=== PATIENT | female | born 1995 | race Two or more races ===

== ENCOUNTER 2020-03-09 16:54 | Outpatient (CLI) | payer OTHER ==
--- NOTE | 2020-03-09 18:01 | Non Stress Test Report ---
Non Stress Test Datetime Report Generated by CPN: 03/09/2020 18:01 DEMOGRAPHIC Test Number: 1 EGA NST: 35.5 INDICATION Indication for Study (NST) Other: Repeat NST VITAL SIGNS Temperature - NST: 98.3 Pulse - NST: 84 RESP - NST: 20 NBPSYS NST: 105 NBPDIA NST: 66 MONITORING Monitor Explained: Monitor Explained; Test Explained; Patient Verbalized Understanding Time on Monitor: 03/09/2020 17:07 Time off Monitor: 03/09/2020 17:43 NST Duration: 36 NST INTERVENTIONS NST Interventions: PO Hydration; Reposition Patient Physician Notified NST: Coffman MD BABY A: [id number] BABY A Movement : Present Contraction Frequency : Irregular FHR Baseline : 130 Accelerations : 15X15 Decelerations : None Variability : Moderate 6-25bpm NST Review: Meets Criteria for Reactive NST NST Review and Verified By : Tawanna RN NST Results: Reactive NST REPORT Report Trigger: Send Report
== END 2020-03-09 17:53 | disposition home or self-care (01) ==
LOC: LC 16:54
PROVIDERS: ATTEND Obstetrics & Gynecology Gynecology
DX: O9A.213 Injury, poisoning and certain other consequences of external causes complicating pregnancy, third trimester (principal); R10.9 Unspecified abdominal pain; Z3A.35 35 weeks gestation of pregnancy; W19.XXXA Unspecified fall, initial encounter; Y92.481 Parking lot as the place of occurrence of the external cause

== ENCOUNTER 2020-03-09 20:13 | Outpatient (CLI) | payer OTHER ==
--- NOTE | 2020-03-09 21:00 | Non Stress Test Report ---
Non Stress Test Datetime Report Generated by CPN: 03/09/2020 20:59 DEMOGRAPHIC EGA NST: 35.5 INDICATION Indication for Study (NST) Other: LC- fall on back VITAL SIGNS Temperature - NST: 98.3 Pulse - NST: 84 RESP - NST: 20 NBPSYS NST: 105 NBPDIA NST: 66 MONITORING Monitor Explained: Monitor Explained; Test Explained; Patient Verbalized Understanding Time on Monitor: 03/09/2020 20:25 Time off Monitor: 03/09/2020 20:54 NST Duration: 29 NST INTERVENTIONS NST Interventions: Reposition Patient Physician Notified NST: Dr. Coffman BABY A Movement : Present Contraction Frequency : none FHR Baseline : 130 Accelerations : 15X15 Decelerations : None Variability : Moderate 6-25bpm NST Review: Meets Criteria for Reactive NST NST Review and Verified By : Katiuska Palafox RN NST Results: Reactive NST REPORT Report Trigger: Send Report
== END 2020-03-09 20:57 | disposition home or self-care (01) ==
LOC: LC 20:13
PROVIDERS: ATTEND Obstetrics & Gynecology Gynecology
DX: O47.03 False labor before 37 completed weeks of gestation, third trimester (principal); Z3A.35 35 weeks gestation of pregnancy; Z91.81 History of falling
CPT/HCPCS: 59025

== ENCOUNTER 2020-04-07 11:51 | Outpatient (CLI) | payer OTHER ==
[2020-04-07 12:37] LABS: ABSOLUTE EOSINOPHILS # (AUTO) 0.1 10^3/uL (0.0-0.6); ABSOLUTE LYMPHOCYTES (AUTO) 1.6 10^3/uL (0.5-4.7); ABSOLUTE MONOCYTES (AUTO) 0.6 10^3/uL (0.1-1.4); ABSOLUTE NEUT (AUTO) 5.9 10^3/uL (1.7-8.2); BASOPHILS % (AUTO) 0.6 % (0-2); HEMATOCRIT 32.6 % (36.0-47.0); HEMOGLOBIN 10.8 g/dL (12.0-15.5); LYMPHOCYTES % (AUTO) 19.7 % (13-45); MEAN CORPUSCULAR HEMOGLOBIN 28.2 pg (27.0-33.4); MEAN CORPUSCULAR HGB CONC 33.1 g/dL (32.0-36.0); MEAN CORPUSCULAR VOLUME 85 fl (80-97); MONOCYTES % (AUTO) 7.1 % (3-13); PLATELET COUNT 200 10^3/uL (150-450); RED BLOOD COUNT 3.83 10^6/uL (3.72-5.28); RED CELL DISTRIBUTION WIDTH 16.2 % (11.5-14.0); SEGMENTED NEUTROPHILS % (AUTO) 71.6 % (42-78); TOTAL CELLS COUNTED % (AUTO) 100 %; WHITE BLOOD COUNT 8.2 10^3/uL (4.0-10.5)
[2020-04-07 12:49] LABS: APPEARANCE,URINE SLIGHTLY-CLOUDY; BILIRUBIN,URINE NEGATIVE (NEGATIVE); COLOR,URINE YELLOW; GLUCOSE, URINE NEGATIVE (NEGATIVE); KETONES,URINE NEGATIVE (NEGATIVE); LEUKOCYTE ESTERASE,URINE TRACE (NEGATIVE); NITRITE,URINE NEGATIVE (NEGATIVE); PROTEIN,URINE 30 mg/dL (NEGATIVE); URINE SPECIFIC GRAVITY 1.024; UROBILINOGEN,URINE NEGATIVE mg/dL (<2.0)
[2020-04-07 12:56] LABS: ALBUMIN 3.2 g/dL (3.5-5.0); ALKALINE PHOSPHATASE 118 U/L (38-126); ASPARTATE AMINO TRANSFERASE 29 U/L (14-36); BILIRUBIN,TOTAL 0.3 mg/dL (0.2-1.3); BLOOD UREA NITROGEN 14 mg/dL (7-20); CALCIUM 9.2 mg/dL (8.4-10.2); CARBON DIOXIDE 21 mmol/L (22-30); CHLORIDE 108 mmol/L (98-107); GLUCOSE 93 mg/dL (75-110); POTASSIUM 4.2 mmol/L (3.6-5.0); TOTAL PROTEIN 5.8 g/dL (6.3-8.2)
[2020-04-07 12:59] LABS: ANION GAP 5 (5-19)
[2020-04-07 13:31] LABS: URINE AMPHETAMINES SCREEN NEGATIVE; URINE BARBITURATES SCREEN NEGATIVE; URINE BENZODIAZEPINES SCREEN NEGATIVE; URINE COCAINE SCREEN NEGATIVE; URINE MARIJUANA (THC) SCREEN NEGATIVE; URINE METHADONE SCREEN NEGATIVE; URINE PHENCYCLIDINE SCREEN NEGATIVE
[2020-04-07 13:41] LABS: UR PRO/CREAT RATIO RESULT 0.1 mg/mg (0.0-0.2); URINE CREATININE 150.7 mg/dL (16-327); URINE PROTEIN 11.2 mg/dL (<12)
--- NOTE | 2020-04-07 14:24 | Non Stress Test Report ---
Non Stress Test Datetime Report Generated by CPN: 04/07/2020 14:23 DEMOGRAPHIC EGA NST: 39.6 INDICATION Indication for Study (NST) Other: High blood pressure VITAL SIGNS Temperature - NST: 97.3 Pulse - NST: 82 RESP - NST: 20 NBPSYS NST: 136 NBPDIA NST: 82 MONITORING Monitor Explained: Monitor Explained; Test Explained Time on Monitor: 04/07/2020 13:30 Time off Monitor: 04/07/2020 13:59 NST Duration: 29 NST INTERVENTIONS NST Interventions: PO Hydration; Reposition Patient Physician Notified NST: Dr. Amato BABY A: [id number] BABY A Movement : Present Contraction Frequency : 0 FHR Baseline : 135 Accelerations : 15X15 Decelerations : None Variability : Moderate 6-25bpm NST Review: Questionable if Meets Criteria for Reactive NST NST Review and Verified By : MAGDA Alex Results: Reactive NST REPORT Report Trigger: Send Report
== END 2020-04-07 14:25 | disposition home or self-care (01) ==
LOC: LC 11:51
PROVIDERS: ATTEND Student in an Organized Health Care Education/Training Program
DX: O13.3 Gestational [pregnancy-induced] hypertension without significant proteinuria, third trimester (principal); Z3A.39 39 weeks gestation of pregnancy
CPT/HCPCS: 36415; 59025; 80053; 80307; 81001; 82570; 83615; 84156; 84550; 85025

== ENCOUNTER 2020-04-08 06:06 | Inpatient (IN) | payer OTHER ==
[2020-04-08] MEDS ORDERED: PENICILLIN G-K 5 MILLION UNIT VIAL ONE (07:23)
[2020-04-08] MEDS ORDERED: RINGERS SOLUTION,LACTATED 1,000 ML IV ONE (07:24)
[2020-04-08] MEDS ORDERED: PENICILLIN G POTASSIUM 5,000,000 UNIT in DEXTROSE 5%-WATER 100 ML IV ONE (07:24)
[2020-04-08] MEDS: RINGERS SOLUTION,LACTATED 1,000 ML IV PRN ×3 (07:32→14:58)
[2020-04-08] MEDS ORDERED: OXYTOCIN 10 UNIT/ML VIAL ONE (07:43)
[2020-04-08] MEDS ORDERED: MISOPROSTOL 0.2 MG TABLET ONE (07:43)
[2020-04-08] MEDS ORDERED: OXYTOCIN/0.9 % SODIUM CHLORIDE 30 UNIT/500 ML RTUINJ ONE (07:43)
[2020-04-08] MEDS ORDERED: LIDOCAINE 1% INJ-PF (10 MG/ML) 30 ML SDV ONE (07:43)
[2020-04-08] MEDS: OXYTOCIN/0.9 % SODIUM CHLORIDE 30 UNIT/500 ML RTUINJ IV PRN (08:00)
[2020-04-08 08:18] LABS: MEAN CORPUSCULAR HEMOGLOBIN 28.3 pg (27.0-33.4); MEAN CORPUSCULAR HGB CONC 33.2 g/dL (32.0-36.0); MEAN CORPUSCULAR VOLUME 85 fl (80-97); PLATELET COUNT 193 10^3/uL (150-450); RED BLOOD COUNT 3.88 10^6/uL (3.72-5.28); RED CELL DISTRIBUTION WIDTH 16.1 % (11.5-14.0); WHITE BLOOD COUNT 7.4 10^3/uL (4.0-10.5)
--- NOTE | 2020-04-08 08:33 | Admission Physical ---
Datetime Report Generated by CPN: 04/08/2020 08:33 CURRENT ADMISSION Hx Assessment: The History has been Reviewed and is Current Chief Complaint: Suspected Ruptured Membranes Chief Complaint Other: Rupture of membranes Admit Impression : Term, Intrauterine ; Ruptured Membranes Admit Plan: Admit to Unit; Initiate Labor Protocol; Initiate Labor Augmentation Protocol ALLERGIES Medication Allergies: No Medication Allergies: No Known Allergies (04/08/2020) Latex: No Latex Allergies Food Allergies: denies Environmental Allergies: denies OBSTETRICAL HISTORY EDC: 04/08/2020 00:00 : 1 Para: 0 Term: 0 : 0 SAB: 0 IAB: 0 Ectopic: 0 Livin Cesareans: 0 VBACs: 0 Multiple Births: 0 Gestational Diabetes: No Rh Sensitization: No Incompetent Cervix: No JUAN RAMON: No Infertility: No ART Treatment: No Uterine Anomaly: No IUGR: No Hx Previous C/S: No Macrosomia: No Hx Loss/Stillborn: No PIH: Yes Hx : No Placenta Previa/Abruption: No Depression/PP Depression: No PTL/PROM: No Post Hemorrhage: No Current Procedures: Ultrasound; NST Obstetrical History Comments: g1-current , currently being evaluated for PIH/Pre-e SEE RECORDS Alcohol: No Marijuana : No Cocaine: No Other Illicit Drugs: No Cigarettes: Never Smoker. [id number] MEDICAL HISTORY Diabetes: No Blood Transfusion: No Pulmonary Disease (Asthma, TB): No Breast Disease: No Hypertension: Unknown Field Handyman Surgery: No Heart Disease: No Hosp/Surgery: No Autoimmune Disorder: No Anesthetic Complications: No Kidney Disease: No Abnormal Pap Smear: No Neuro/Epilepsy: No Psychiatric Disorders: No Other Medical Diseases: No Hepatitis/Liver Disease: No Significant Family History: No Varicosities/Phlebitis: No Trauma/Violence : No Thyroid Dysfunction: No Medical History Comments: born in [place] had tb vaccine so PPD is always positive INFECTIOUS HISTORY Gonorrhea: No Genital Herpes: No Chlamydia: No Tuberculosis: No Syphilis: No Hepatitis: No HIV/AIDS Exposure: No Rash or Viral Illness: No HPV: No Infectious History Comments: born in [place] had tb vaccine so PPD is always positive PHYSICAL EXAM General: Normal HEENT: Normal Neurologic: Normal Thyroid: Normal Heart: Normal Lungs: Normal Breast: Normal Back: Normal Abdomen: Normal Genitourinary Exam: Normal Extremities: Normal DTRs: Normal Pelvic Type: Adequate Vital Signs: Reviewed; Within Normal Limits VAGINAL EXAM Dilatation: 2 Effacement: 60 Station: -2 Contraction Comments: Irregular MEMBRANES Pooling: Positive Membranes: Ruptured Amniotic Fluid Color: Meconium, Light FETUS A EGA: 40.0 Monitoring: External US FHR- Baseline: 135 Variability: Moderate 6-25bpm Accelerations: 15X15 Decelerations: None FHR Category: Category I Presentation: Vertex Admit Comment: 25 G1 at 40.0 weeks EGA in active labor after SROM at 0525 this AM. -Admit to LDR -NPO and IVFs. LR at 125 cc/hr after 1 liter bolus -CEFM and toco -GBS positive. PCN prophylaxis -Irregular ctx: Pitocin low dose protocol. -Elevated b/p's : PIH labs and 24 hr urine pending No severes presently. Plan Mag sulfate if severes develop -Anticipate PLANS FOR LABOR AND DELIVERY Labor and Delivery: None Pain Management: Natural Feeding Preference: Breast Benefit of Breast Feed Discussed: Yes Circumcision: N/A INFORMED CONSENT Informed Consent Obtained: Vaginal Delivery; Section Delivery; Risks, Benefits and Alternatives Discussed Signature: with User ID: Saray : with User ID: Saray
[2020-04-08] MEDS: PENICILLIN G POTASSIUM 2,500,000 UNIT in DEXTROSE 5%-WATER 50 ML IV SCH ×3 (11:34→20:14)
[2020-04-08] MEDS ORDERED: PROMETHAZINE HCL INJ 25 MG/1 ML VIAL ONE (11:49)
[2020-04-08] MEDS ORDERED: NALBUPHINE HCL INJ 10 MG/1 ML AMPULE ONE (11:49)
[2020-04-08] MEDS ORDERED: NALBUPHINE HCL INJ 10 MG/1 ML AMPULE INJ ONE (11:50)
[2020-04-08] MEDS ORDERED: PROMETHAZINE HCL INJ 25 MG/1 ML VIAL IV PRN (11:50)
[2020-04-08] MEDS ORDERED: LABETALOL HCL INJ 20 MG/4 ML DISP.SYRIN IV ONE ×2 (12:29→12:42)
[2020-04-08] MEDS ORDERED: FENTANYL/BUPIVACAINE/NS/PF 300 MCG/150 ML RTUINJ EPI ONE (14:10)
[2020-04-08] MEDS ORDERED: ROPIVACAINE HCL 0.2% INJ/PF (2 MG/ML) 20 ML SDV ONE (14:10)
[2020-04-08] MEDS ORDERED: EPHEDRINE SULFATE INJ 50 MG/1 ML AMPULE ONE (14:10)
[2020-04-08 15:36] LABS: 24 HOUR URINE PROTEIN RESULT 740 mg/day (42-225); URINE PROTEIN 18.4 mg/dL (<12)
[2020-04-09] MEDS: PENICILLIN G POTASSIUM 2,500,000 UNIT in DEXTROSE 5%-WATER 50 ML IV SCH ×2 (00:12→05:28)
[2020-04-09] MEDS ORDERED: CALCIUM CARBONATE 500 MG TAB.CHEW PO ONE (01:04)
[2020-04-09] MEDS ORDERED: DEXTROSE 5%-WATER 250 ML IV PRN (01:04)
[2020-04-09] MEDS ORDERED: OXYTOCIN/0.9 % SODIUM CHLORIDE 30 UNIT/500 ML RTUINJ ONE (01:43)
[2020-04-09] MEDS: OXYTOCIN/0.9 % SODIUM CHLORIDE 30 UNIT/500 ML RTUINJ IV PRN (01:46)
[2020-04-09] MEDS ORDERED: LABETALOL HCL INJ 20 MG/4 ML DISP.SYRIN IV PRN (01:54)
[2020-04-09] MEDS: RINGERS SOLUTION,LACTATED 1,000 ML IV PRN (02:19)
[2020-04-09] MEDS ORDERED: LABETALOL HCL INJ 20 MG/4 ML DISP.SYRIN IV ONE ×2 (02:29→02:33)
[2020-04-09] MEDS ORDERED: CEFAZOLIN 2 GM/D5W RTU 2 GM/50 ML RTUPB IV ONE (06:59)
[2020-04-09] MEDS ORDERED: CITRIC ACID/SODIUM CITRATE ORAL SOLN 15 ML UDCUP ONE (06:59)
[2020-04-09] MEDS ORDERED: CARBOPROST TROMETHAMINE INJ 250 MCG/1 ML AMPULE ONE (07:23)
[2020-04-09] MEDS ORDERED: METHYLERGONOVINE MALEATE INJ/PF 0.2 MG/1 ML AMPULE ONE (07:23)
--- NOTE | 2020-04-09 07:24 | PDOC PROGRESS REPORT ---
Subjective Date:: 04/09/20 Subjective:: Pushing with patient after period of rest. She is still not moving baby past pub ic bone /Patient states she just can't do it any more. Discussed primary section, risks, benefits Consent signed. Pitocin turned off. CEFM is catetgory 1 NPO since 1300 04/08/20 Reason For Visit: Physical Exam - Physical Exam Vital Signs: Intake & Output 04/07/20 04/08/20 04/09/20 06:59 06:59 06:59 Intake Total 193 Balance 193 Weight 107 kg General appearance: PRESENT: no acute distress, cooperative Respiratory exam: PRESENT: clear to auscultation piotr Cardiovascular exam: PRESENT: RRR, +S1, +S2 GI/Abdominal exam: PRESENT: soft - obese, NTTP Extremities exam: PRESENT: full ROM. ABSENT: calf tenderness, clubbing, pedal edema Neurological exam: PRESENT: alert, awake, oriented to person, oriented to place, oriented to time, oriented to situation, CN II-XII grossly intact. ABSENT: motor sensory deficit Psychiatric exam: PRESENT: appropriate affect, normal mood. ABSENT: homicidal ideation, suicidal ideation Skin exam: PRESENT: dry, intact, warm. ABSENT: cyanosis, rash Result Laboratory Results: 04/08/20 08:06 04/08/20 04/08/20 04/08/20 08:06 08:06 14:03 WBC 7.4 RBC 3.88 Hgb 11.0 L Hct 33.0 L MCV 85 MCH 28.3 MCHC 33.2 RDW 16.1 H Plt Count 193 Ur 24 Hour Volume 4020 Ur Total Protein 24 Hr 740 H Blood Type B POSITIVE Antibody Screen NEGATIVE Assessment & Plan - Diagnosis (1) Failure to progress in labor Is this a current diagnosis for this admission?: Yes (2) Spontaneous rupture of membranes Is this a current diagnosis for this admission?: Yes - Time Time Spent with patient: Less than 15 minutes Anticipated discharge: Home Anticipated DC Timeframe: within 48 hours - Plan Summary Plan Summary: 25 yo G1 at 40.1 weeks EGA with arrest of descent/faillure to progress in labor She has been complete for 12 hours and pushed for 3 . Took a rest and She is still not moving baby past pubic bone /Patient states she just can't do it any more. Discussed primary section, risks, benefits Consent signed. Pitocin turned off. CEFM is catetgory 1 NPO since 1300 04/08/20 Ancef 2 gms IV prior to OR Abdominal prep -Plan for primary section
[2020-04-09] MEDS ORDERED: KETOROLAC TROMETHAMINE INJ/PF 30 MG/1 ML SDV ONE (07:37)
[2020-04-09] MEDS ORDERED: OXYTOCIN 10 UNIT/ML VIAL ONE (07:37)
[2020-04-09] MEDS ORDERED: LIDOCAINE 2% INJ-PF (20 MG/ML) 10 ML AMPUL ONE ×2 (07:37→08:05)
[2020-04-09] MEDS ORDERED: ACETAMINOPHEN 1,000 MG/100 ML RTUPB IV ONE (07:37)
[2020-04-09] MEDS ORDERED: FENTANYL CITRATE INJ/PF 100 MCG/2 ML AMPUL ONE (07:37)
[2020-04-09] MEDS ORDERED: MIDAZOLAM 2 MG/2 ML INJ ONE (08:33)
[2020-04-09] MEDS ORDERED: MORPHINE SULFATE 10 MG/ML INJ ONE (08:34)
--- NOTE | 2020-04-09 09:08 | Operative Report ---
Operative Report DATE OF SURGERY: 04/09/20 PREOPERATIVE DIAGNOSIS: Intrauterine at 40.1 wks EGA. Mild preeclamp mckayla. Arrest of descent. Failure to progress in labor POSTOPERATIVE DIAGNOSIS: Same as above. Occiput posterior OPERATION: Primary section SURGEON: MAKSIM VÁSQUEZ ANESTHESIA: Spinal TISSUE REMOVED OR ALTERED: Placenta COMPLICATIONS: none ESTIMATED BLOOD LOSS: 700cc INTRAOPERATIVE FINDINGS: Normal appearing uterus, bilateral fallopian tubes and ovaries. Vertex, but occiput posterior. Meconium stained amniotic fluid. Viable female PROCEDURE: IV fluids: per anesthesia record Urinary output: 450 cc yellow urine Findings: Normal-appearing uterus bilateral fallopian tubes and ovaries. Placenta normal grossly. Viable female infant occiput posterior Position: To recovery room in stable condition Description of procedure: The patient was taken to the operating room and spinal anesthesia was administered and found to be adequate. She was then placed on the OR table in the supine position with a slight leftward tilt. Patient was prepped and draped in usual sterile fashion. Ancef 2 gms was given IV prior to the procedure for infection prophylaxis. Timeout was taken. A Pfannenstiel skin incision was then made approximately 3 cm above the pubic symphysis and carried down to level the rectus fascia. The rectus fascia was then nicked in the midline with a scalpel and the fascial incision was extended laterally with use of curved Lucas scissor s. The rectus fascia was then grasped with 2 Kocker clamps elevated and the underlying rectus muscle was dissected off both bluntly and sharply. Any bleeding controlled with cautery. The rectus muscles were then split in the midline and the peritoneum was entered. The peritoneal incision was then extended by manually stretching the peritoneum. The bladder blade was positioned. The bladder flap was created and the bladder was noted to be out of harm's way with digital pressure. A scalpel was then used in the lower uterine for the hysterotomy, slowly until amniotomy was obtained a large amount of fluid was noted. The uterine incision was then manually stretched. The was noted to be in vertex postion -occiput posterior and deep in the pelvis. Using a hand deep in pelvis and the assistance from a hand in the vagina, the head was elevated and brought to the hysterotomy incision iwth some difficulty. The head then delivered. The shoulders and the rest of the body followed immediately. The cord was cut clamped and the infant was handed off to the nurse awaiting. The placenta was manually delivered. Using a lap gauze the uterus was cleared of all clots and debris. The uterus was then exteriorized and a bladder blade was repositioned. The uterine incision was then closed with 0 Chromic suture in a running locked fashion. A second layer of the same suture was used in a running locked imbricated fashion. The uterine incision was inspected and noted to be hemostatic. Retractor was removed. The posterior aspect of the uterus was then inspected and anatomy was seen as above. The uterus was returned to its normal anatomic position within the abdominal cavity. Warm saline irrigation was used to clear all clots and debris from the abdomen. The uterine incision was inspected once more and noted to remain hemostatic. The bladder blade was removed and the peritoneum was closed with 2-0 chromic in a running fashion. The rectus muscles were then reapproximated and the rectus fascia was closed with a #0 looped PDS in a running fashion. The subcutaneous tissue was then inspected and any bleeding was controlled with Bovie electrocautery. The subcutaneous tissue was then closed with 2-0 Plain Gut suture in a running fashion. The skin was then closed with 4-0 Monocryl in a running subcuticular fashion. The skin incision was then clean dried and Dermabond was applied over the skin incision. All instrument sponge and needle counts were correct x3 for the procedure the patient tolerated the procedure well. She will proceed to recovery room in stable condition
[2020-04-09] MEDS ORDERED: DIPH/PERTUSS(ACELL)/TETANUS VAC/PF 0.5 ML SYR (>=10YO) IM PRN (09:09)
[2020-04-09] MEDS ORDERED: HYDROMORPHONE HCL INJ/PF 2 MG/ML AMPULE IV PRN ×2 (09:09→13:12)
[2020-04-09] MEDS ORDERED: OXYTOCIN/0.9 % SODIUM CHLORIDE 30 UNIT/500 ML RTUINJ IV PRN (09:09)
[2020-04-09] MEDS ORDERED: PROMETHAZINE HCL INJ 25 MG/1 ML VIAL IV PRN (09:09)
[2020-04-09] MEDS ORDERED: SIMETHICONE 80 MG TAB.CHEW PO PRN (09:09)
[2020-04-09] MEDS ORDERED: MEASLES,MUMPS&RUBELLA VACC/PF 0.5 ML VIAL SUBCUT PRN (09:09)
[2020-04-09] MEDS ORDERED: ACETAMINOPHEN 325 MG TABLET PO PRN (09:09)
[2020-04-09] MEDS ORDERED: RINGERS SOLUTION,LACTATED 1,000 ML IV PRN (09:09)
--- NOTE | 2020-04-09 10:10 | Delivery Summary ---
Del Sum A-C Datetime Report Generated by CPN: 04/09/2020 10:10 DELIVERY PERSONNEL DELIVERY PERSONNEL: [id number] Delivery Doctor:: Patricia Mason MD BARBERING INSTRUCTOR:: Zahida Figueroa BARBERING INSTRUCTOR Labor and Delivery Nurse:: Ester Lenz RN Elastic Attacher Coverstitch:: Tamy Moise RN Neonatal Nurse Practitioner:: ANGELITA Baig Nursery Nurse:: Sandra Garrett RN Lead Ios Developer/STORE SALES LEADER: Tia Hernandez, ASSISTANT PURCHASING MANAGER MATERNAL INFORMATION Delivery Anesthesia: Epidural Medications After Delivery: Pitocin Drip 20 Units/1000ml NSS; Cytotec 1000mcg Per Rectum/Vagina Meds After Delivery Comment: total of 40units of IV pitocin Delivery QBL: 750 Maternal Complications: Prolonged Second Stage > 2 Hrs Provider Comments: See operative report for details LABOR SUMMARY EDC: 04/08/2020 00:00 No. Babies in Womb: 1 Attempted: No Labor Anesthesia: Epidural LABOR INFORMATION Reason for Induction: Not Applicable Onset of Labor: 04/08/2020 15:20 Complete Dilatation: 04/08/2020 18:45 Oxytocin: Augmentation Group B Beta Strep: positive Antibiotics # of Doses: 7 Antibiotics Time of Last Dose: 04/09/2020 07:48 Name of Antibiotic Given: PCN X6 + Ancef 2g Steroids Given: None Reason Steroids Not Administered: Not Applicable MEMBRANES Membranes Rupture Method: Spontaneous Rupture of Membranes: 04/08/2020 05:25 Length of Rupture (hr): 26.90 Amniotic Fluid Color: Light Meconium Amniotic Fluid Amount: Scant Amniotic Fluid Odor: Normal STAGES OF LABOR Stage 1 hr: 3 Stage 1 min: 25 Stage 2 hr: 13 Stage 2 min: 34 Stage 3 hr: 0 Stage 3 min: 1 Total Time in Labor hr: 17 Total Time in Labor min: 0 VAGINAL DELIVERY Episiotomy: None Laceration #1: None Laceration Extension #1: N/A Laceration Repair: Not Applicable Sharps Count Correct: N/A CSECTION DELIVERY Primary Indication: Failure of Descent CSection Urgency: Non-Scheduled CSection Incidence: Primary Labor: Labor Elective: Nonelective CSection Incision: Lower Uterine Transverse BABY A INFORMATION Infant Delivery Date/Time: 04/09/2020 08:19 Method of Delivery: Nurse Controlled Delivery: No Born in Route : No : N/A Forceps: N/A Vacuum Extraction: N/A Shoulder Dystocia : No PRESENTATION/POSITION BABY A Presentation: Cephalic Cephalic Presentation: Vertex Breech Presentation: N/A PLACENTA INFORMATION BABY A Placenta Delivery Time : 04/09/2020 08:20 Placenta Method of Delivery: Manual Removal Placenta Status: Delivered SCORES BABY A Heart Rate 1 min: >100 bpm Resp Effort 1 min: Slow, Irregular Reflex Irritability 1 min: Cough or Sneeze or Pulls Away Muscle Tone 1 min: Some Flexion of Extremities Color 1 min: Blue/Pale Resuscitation Effort 1 min: Tactile Stimulation SCORE 1 MIN: 6 Heart Rate 5 min: >100 bpm Resp Effort 5 min: Good Cry Reflex Irritability 5 min: Cough or Sneeze or Pulls Away Muscle Tone 5 min: Active Motion Color 5 min: Body [place], Extremities Blue SCORE 5 MIN: 9 INFANT INFORMATION BABY A Gestational Age at Delivery: 40.1 Gestational Status: Full Term- 39- 40.6 Weeks Infant Outcome : Liveborn Condition : Stable Sex: Female IDENTIFICATION BABY A Infant Verification Date/Time: 04/09/2020 08:26 ID Band Number: [id number] Mother's Name Verified: Yes Infant RN Verifying Infant: B Baidy RN Additional Verifying Personnel: David Kingsley RN WEIGHT/LENGTH BABY A Infant Birthweight (gm): 3590 Weight (lb): 7 Infant Weight (oz): 15 Length (in): 21.50 Length (cm): 54.61 CORD INFORMATION BABY A No. Cord Vessels: 3 Nuchal Cord : Around Neck x1, Loose Cord Blood Taken: Yes-For Storage (Mom's Blood type +) Suction: None ASSESSMENT BABY A Infant Complications: None Physical Findings at Delivery: Within Normal Limits Infant Respirations: Appears Normal Skin to Skin: Yes Regional Vice President Surgical Sales/ALS Called : No Transferred To: [facility] BABY B INFORMATION : N/A SIGNATURES Signature: with User ID: Saray : with User ID: Saray
--- NOTE | 2020-04-09 10:11 | Birth Certificate Data ---
Cert Data Datetime Report Generated by MONROE: 04/09/2020 10:10 CERTIFICATE DATA Delivery Provider: Patricia Mason MD (04/09/2020 09:00:Tamy Moise RN) 47a. Care: Yes (03/09/2020 17:07:Blososm Gong RN) 47b. Date of First Visit: 09/29/2019 00:00 (03/09/2020 17:07:Tamy Moise RN) 47c. Date of Last Visit: 04/07/2020 00:00 (03/09/2020 17:07:Tamy Moise RN) 47d. Number of Visits: 14 (03/09/2020 17:07:Tamy Moise RN) 48a. Number of Prev Live Births: 0 (03/09/2020 17:07:Tamy Moise RN) 48b. Now Livin (03/09/2020 17:07:Meme Salmon RN) 48c. Live Births Now : 0 (03/09/2020 17:07:QS system process) 48e. Losses: 0 (03/09/2020 17:07:Tamy Sales, RN) RISK FACTORS IN THIS 49a. Diabetes: No (03/09/2020 17:07:Raissa Malcolm RN) 49b. Hypertension: Unknown (03/09/2020 17:07:Raissa Malcolm RN) 49c. Previous Births: 0 (03/09/2020 17:07:Meme Salmon RN) 49d. Stillborns: No (03/09/2020 17:07:Raissa Malcolm RN) 49d. IUGR: No (03/09/2020 17:07:Raissa Malcolm RN) 49e. Infertility Treatment: No (03/09/2020 17:07:Raissa Malcolm RN) 49f. Previous Cesareans: 0 (03/09/2020 17:07:Tamy Moise RN) Mother's Height 50b. Height Inches: 65 (03/09/2020 17:28:QS system process) Mother's Weight 51a. Pre- Weight (lbs): 176 (03/09/2020 17:07:Tamy Moise RN) 51b. Weight at Delivery (lbs): 235 (04/08/2020 06:23:QS system process) 52. Dt Last Normal Menses Began: 07/03/2019 00:00 (03/09/2020 17:07:Tamy Moise RN) Infections Present/Treated 53a. Gonorrhea: No (03/09/2020 17:07:Riassa Malcolm RN) Results this Hospital Visit : Negative (03/09/2020 17:07:Raissa Malcolm RN) 53b. Syphilis: No (03/09/2020 17:07:Raissa Malcolm RN) 53c. Chlamydia: No (03/09/2020 17:07:Raissa Malcolm RN) Results this Hospital Visit: Negative (03/09/2020 17:07:Raissa Malcolm RN) 53d. Hepatitis B: No (03/09/2020 17:07:Raissa Malcolm RN) Results this Hospital Visit: Negative (03/09/2020 17:07:Raissa Malcolm RN) 53e. Hepatitis C: Negative (03/09/2020 17:07:Raissa Malcolm RN) 53h. Mother Tested for HBsAG: Yes (03/09/2020 17:07:Raissa Malcolm RN) 53j. Test Result: Negative (03/09/2020 17:07:Raissa Malcolm RN) Obstetric Procedures 54a, b, c. Obstetric Procedures: Ultrasound; NST (03/09/2020 17:07:Raissa Malcolm RN) Cigarette Smoking Cigarette Smoking: Never Smoker. [id number] (03/09/2020 17:07:Raissa Malcolm RN) Onset of Labor 56a. PROM >12 Hrs: 26.90 (04/08/2020 06:54:QS system process) 56b. Precipitous Labor <3 Hrs: 17 (03/09/2020 17:07:QS system process) 56c. Prolonged Labor > 20 Hrs: 17 (03/09/2020 17:07:QS system process) 57a. Induction of Labor: Augmentation (03/09/2020 17:07:Tamy Moise RN) 57c. Non-Vertex Presentation A: Vertex (03/09/2020 17:07:Raissa Malcolm RN) 57d. Steroids - Lung Mat: None (03/09/2020 17:07:Tamy Moise RN) 57d. Steroids - Lung Mat: Not Applicable (03/09/2020 17:07:Tamy Moise RN) 57e. Antibiotics During Labor: 04/09/2020 07:48 (03/09/2020 17:07:Tamy Moise RN) 57f. Mat [place] or Temp >100.4: 98.9 (03/09/2020 17:07:Tamy Moise RN) 57g. Moderate/Heavy Meconium: Light Meconium (04/08/2020 06:54:Raissa Malcolm RN) 57h. Intolerance of Labor: Failure of Descent (03/09/2020 17:07:Raissa Malcolm RN) 57i. Epidural/Spinal Anesthesia: Epidural (03/09/2020 17:07:Tamy Sales, RN) Method of Delivery 58a. Forceps - Unsuccessful A: N/A (03/09/2020 17:07:Tamy Sales, RN) 58b. Vacuum - Unsuccessful A: N/A (03/09/2020 17:07:Tamy Sales, RN) 58c. Presentation at 58c. Presentation at - A : Vertex (03/09/2020 17:07:Raissa Malcolm RN) 58c. Presentation at - A : N/A (03/09/2020 17:07:Raissa Malcolm RN) 58c. Presentation at - A : Cephalic (03/09/2020 17:07:Raissa Malcolm RN) Final Route and Method of Del 58d. Baby A Route/Delivery: (03/09/2020 17:07:Raissa Malcolm RN) 58e. Trial of Labor Attempted: No (03/09/2020 17:07:Tamy Moise RN) 58e. Trial of Labor Attempted A: N/A (03/09/2020 17:07:Tamy Moise RN) 58e. Trial of Labor Attempted B: N/A (03/09/2020 17:07:Tamy Moise RN) Maternal Morbidity 59b. 3rd or 4th Degree Lacs: None (03/09/2020 17:07:Raissa Malcolm RN) Birthweight Baby A: 3590 (03/09/2020 17:07:Sandra Garrett RN) 60a. Pounds : 7 (03/09/2020 17:07:QS system process) 60b. Ounces: 15 (03/09/2020 17:07:QS system process) 61. GA at Delivery Baby A: 40.1 (03/09/2020 17:07:Raissa Malcolm RN) : Full Term- 39- 40.6 Weeks (03/09/2020 17:07:QS system process) 62a. 5 Minute Baby A: 9 (03/09/2020 17:07:QS system process)
[2020-04-09] MEDS ORDERED: OXYCODONE-ACETAMINOPHEN 5-325 MG TABLET ONE (11:25)
[2020-04-09] MEDS: OXYCODONE-ACETAMINOPHEN 5-325 MG TABLET PO PRN ×2 (11:26→18:13)
[2020-04-09] MEDS: PRENATAL VITAMIN W DHA CAPSULE PO SCH (13:02)
[2020-04-09] MEDS: DOCUSATE SODIUM 100 MG CAPSULE PO SCH ×2 (13:02→18:10)
[2020-04-09] MEDS ORDERED: KETOROLAC TROMETHAMINE 60 MG/2 ML SDV SCH (13:15)
[2020-04-09] MEDS ORDERED: HYDROMORPHONE HCL INJ/PF 2 MG/ML AMPULE ONE (13:27)
[2020-04-09] MEDS: IBUPROFEN 800 MG TABLET PO SCH ×2 (15:29→21:55)
[2020-04-09] MEDS ORDERED: KETOROLAC TROMETHAMINE INJ/PF 30 MG/1 ML SDV IV SCH (18:00)
[2020-04-10] MEDS: IBUPROFEN 800 MG TABLET PO SCH ×3 (05:48→22:23)
[2020-04-10 07:09] LABS: HEMATOCRIT 20.8 % (36.0-47.0); MEAN CORPUSCULAR HEMOGLOBIN 28.5 pg (27.0-33.4); MEAN CORPUSCULAR HGB CONC 33.4 g/dL (32.0-36.0); MEAN CORPUSCULAR VOLUME 85 fl (80-97); PLATELET COUNT 187 10^3/uL (150-450); RED BLOOD COUNT 2.45 10^6/uL (3.72-5.28); RED CELL DISTRIBUTION WIDTH 16.4 % (11.5-14.0); WHITE BLOOD COUNT 7.2 10^3/uL (4.0-10.5)
[2020-04-10] MEDS: DOCUSATE SODIUM 100 MG CAPSULE PO SCH ×2 (09:05→17:44)
[2020-04-10] MEDS: PRENATAL VITAMIN W DHA CAPSULE PO SCH (09:05)
[2020-04-10] MEDS: OXYCODONE-ACETAMINOPHEN 5-325 MG TABLET PO PRN ×3 (09:07→18:12)
--- NOTE | 2020-04-10 14:58 | PDOC PROGRESS REPORT ---
Subjective-OB Progress Note for:: 04/10/20 Subjective: reports bleeding slowing, pain controlled with current meds. denies needs Physical Exam (OB) Vital Signs: Temp Pulse Resp BP Pulse Ox 97.7 F 82 16 140/92 H 100 04/10/20 12:10 04/10/20 12:10 04/10/20 12:10 04/10/20 12:10 04/10/20 12:10 Intake & Output 04/09/20 04/10/20 04/11/20 06:59 06:59 06:59 Intake Total 1930 1500 380 Output Total 4300 Balance 1930 -2800 380 - Dressing Removed: No Incision: Well Approximated Closure Type: Surgical Glue - Maternal Morbidity 59. Maternal Morbidity (serious complications experinced by the mother associated with labor and delivery: None of the above - Abdomen Description: Tender, Soft, Round Hernia Present: No Fundal Description: Firm, Midline Fundal Height: u/u - u/2 - Abdominal Distension: No distension - Extremities Lower extremities: Millicent's sign - neg Calf: Normal, Nontender Objective-Diagnostic Laboratory: 04/10/20 06:25 04/10/20 06:25 WBC 7.2 RBC 2.45 L Hgb 7.0 L D Hct 20.8 L MCV 85 MCH 28.5 MCHC 33.4 RDW 16.4 H Plt Count 187 Assessment and Plan(PN) - Time Spent with Patient Time with patient: Less than 15 minutes - Disposition Anticipated Discharge Disposition: Home, Self Care Anticipated Discharge Timeframe: within 48 hours
[2020-04-10] MEDS: PENICILLIN G POTASSIUM 2,500,000 UNIT in DEXTROSE 5%-WATER 50 ML IV SCH (15:56)
[2020-04-10] MEDS ORDERED: IBUPROFEN 800 MG TABLET PO SCH (18:00)
[2020-04-11] MEDS: OXYCODONE-ACETAMINOPHEN 5-325 MG TABLET PO PRN (01:57)
[2020-04-11] MEDS: IBUPROFEN 800 MG TABLET PO SCH (05:30)
[2020-04-11 06:40] LABS: ABSOLUTE EOSINOPHILS # (AUTO) 0.1 10^3/uL (0.0-0.6); ABSOLUTE LYMPHOCYTES (AUTO) 2.1 10^3/uL (0.5-4.7); ABSOLUTE MONOCYTES (AUTO) 0.8 10^3/uL (0.1-1.4); ABSOLUTE NEUT (AUTO) 5.3 10^3/uL (1.7-8.2); BASOPHILS % (AUTO) 0.3 % (0-2); EOSINOPHILS % (AUTO) 1.1 % (0-6); LYMPHOCYTES % (AUTO) 25.1 % (13-45); MEAN CORPUSCULAR HEMOGLOBIN 28.3 pg (27.0-33.4); MEAN CORPUSCULAR HGB CONC 33.1 g/dL (32.0-36.0); MEAN CORPUSCULAR VOLUME 86 fl (80-97); MONOCYTES % (AUTO) 9.2 % (3-13); PLATELET COUNT 198 10^3/uL (150-450); RED BLOOD COUNT 2.45 10^6/uL (3.72-5.28); RED CELL DISTRIBUTION WIDTH 16.5 % (11.5-14.0); SEGMENTED NEUTROPHILS % (AUTO) 64.3 % (42-78); TOTAL CELLS COUNTED % (AUTO) 100 %; WHITE BLOOD COUNT 8.3 10^3/uL (4.0-10.5)
[2020-04-11 06:47] LABS: HEMOGLOBIN 6.9 g/dL (12.0-15.5)
[2020-04-11] MEDS: PRENATAL VITAMIN W DHA CAPSULE PO SCH (10:22)
[2020-04-11] MEDS: DOCUSATE SODIUM 100 MG CAPSULE PO SCH (10:22)
--- NOTE | 2020-04-11 10:48 | PDOC DISCHARGE SUMMARY ---
Impression - Admit/DC Date/PCP Admission Date/Primary Care Provider: 04/08/20 06:53 RICHMOND RAMIREZ MD Discharge Date: 04/11/20 - POD #2, pt doing well, UOB, voiding, denies dizziness or SOB w/ ambulation. IV iron offered, pt declines today. Iron rich foods and PO iron discussed. B+, Rubella immune, - Discharge Diagnosis (1) Acute blood loss as cause of postoperative anemia Is this a current diagnosis for this admission?: Yes (2) Normal course Is this a current diagnosis for this admission?: Yes (3) Status post primary low transverse section Is this a current diagnosis for this admission?: Yes (4) Failure to progress in labor Is this a current diagnosis for this admission?: Yes (5) Spontaneous rupture of membranes Is this a current diagnosis for this admission?: Yes - Additional Information Resuscitation Status: Full Code Discharge Diet: As Tolerated Discharge Activity: Activity As Tolerated, No Driving, No Lifting Over 10 Pounds, Pelvic Rest Referrals: RICHMOND RAMIREZ MD [Primary Care Provider] - Prescriptions: Docusate Sodium [Colace 100 mg Capsule] 100 mg PO BID #60 capsule Ferrous Sulfate 325 mg PO BID #60 tablet. Ibuprofen [Motrin 800 mg Tablet] 800 mg PO Q8 #60 tablet Oxycodone HCl/Acetaminophen [Percocet 5-325 mg Tablet] 1 tab PO Q4HP PRN #30 tablet PRN Reason: Pain Scale Of 4 Home Medications: Prenat 115/Iron Fum/Folic/Dss [ 19 Tablet] 1 each PO DAILY 03/09/20 Docusate Sodium [Colace 100 mg Capsule] 100 mg PO BID #60 capsule 04/11/20 Ferrous Sulfate 325 mg PO BID #60 tablet. 04/11/20 Ibuprofen [Motrin 800 mg Tablet] 800 mg PO Q8 #60 tablet 04/11/20 Oxycodone HCl/Acetaminophen [Percocet 5-325 mg Tablet] 1 tab PO Q4HP PRN #30 tablet 04/11/20 HPI Reason(s) for Admission: Onset of Labor Intrapartum Procedure(s): : Low Cervical, Transverse Hospital Course 59. Maternal Morbidity (serious complications experinced by the mother associated with labor and delivery: None of the above Results Laboratory Results: WBC 8.3 10^3/uL (4.0-10.5) 12/15/20 06:07 RBC 2.45 10^6/uL (3.72-5.28) L 04/11/20 06:07 Hgb 6.9 g/dL (12.0-15.5) L 04/11/20 06:07 Hct 21.0 % (36.0-47.0) L 04/11/20 06:07 MCV 86 fl (80-97) 04/11/20 06:07 MCH 28.3 pg (27.0-33.4) 04/11/20 06:07 MCHC 33.1 g/dL (32.0-36.0) 04/11/20 06:07 RDW 16.5 % (11.5-14.0) H 04/11/20 06:07 Plt Count 198 10^3/uL (150-450) 04/11/20 06:07 Lymph % (Auto) 25.1 % (13-45) 04/11/20 06:07 [place] % (Auto) 9.2 % (3-13) 04/11/20 06:07 Eos % (Auto) 1.1 % (0-6) 04/11/20 06:07 Baso % (Auto) 0.3 % (0-2) 04/11/20 06:07 Absolute Neuts (auto) 5.3 10^3/uL (1.7-8.2) 04/11/20 06:07 Absolute Lymphs (auto) 2.1 10^3/uL (0.5-4.7) 04/11/20 06:07 Absolute Monos (auto) 0.8 10^3/uL (0.1-1.4) 04/11/20 06:07 Absolute Eos (auto) 0.1 10^3/uL (0.0-0.6) 04/11/20 06:07 Absolute Basos (auto) 0.0 10^3/uL (0.0-0.2) 04/11/20 06:07 Seg Neutrophils % 64.3 % (42-78) 04/11/20 06:07 Ur 24 Hour Volume 4020 mL 04/08/20 14:03 Ur Total Protein 24 Hr 740 mg/day (42-225) H 04/08/20 14:03 Urine Total Protein 18.4 mg/dL (<12) H 04/08/20 14:03 Membranes Rupture POSITIVE (NEGATIVE) H 04/08/20 06:23 RPR NONREACTIVE (NONREACTIVE) 04/08/20 08:06 Blood Type B POSITIVE 04/08/20 08:06 Antibody Screen NEGATIVE 04/08/20 08:06 Plan Health Concerns: increase PO fluids, iron rich foods, fiber, protein Plan of Treatment: d/c home. F/up with [facility] in one week for incision check Time Spent: Less than 30 Minutes
[2020-04-11 12:03] VITALS: BP 168/94
== END 2020-04-11 12:35 | disposition home or self-care (01) | DRG 787 ==
LOC: LC 06:06 → LR 06:53 → 2S 04-09 11:45
PROVIDERS: ADMIT Student in an Organized Health Care Education/Training Program; ATTEND Student in an Organized Health Care Education/Training Program
PROC: 10D00Z1 Extraction of Products of Conception, Low, Open Approach (ICD-10-PCS; principal; 2020-04-08)
DX: O14.04 Mild to moderate pre-eclampsia, complicating childbirth (principal); D62 Acute posthemorrhagic anemia; O62.1 Secondary uterine inertia; Z20.828 Contact with and (suspected) exposure to other viral communicable diseases; O90.81 Anemia of the puerperium; O63.1 Prolonged second stage (of labor); O99.824 Streptococcus B carrier state complicating childbirth; O69.81X0 Labor and delivery complicated by cord around neck, without compression, not applicable or unspecified; Z86.11 Personal history of tuberculosis; Z3A.40 40 weeks gestation of pregnancy; Z37.0 Single live birth
CPT/HCPCS: 1967; 1968; 36415; 84112; 84156; 85025; 85027; 86592; 86850; 86900; 86901; 88307; 94760; 94799; 99140; J0131; J0690; J1170; J1885; J2210; J2250; J2270; J2300; J2540; J2550; J2590; J2795; J3010; J3490; J7060